=== PATIENT | female | born 1970 | race Caucasian/White ===

== ENCOUNTER → 2018-10-26 | Outpatient (CLI) | payer OTHER ==
[~2018-10-26] MED LIST: ATIVAN0.5 MG PO; DAYPRO600 M1 PO; HYDROXYZINE PAM50 MG PO; ROBAXIN750 MG PO
== END | disposition home or self-care (01) ==
LOC: MRI 10:54
DX: R51 Headache (principal); R42 Dizziness and giddiness

== ENCOUNTER → 2019-10-12 | Outpatient (CLI) | payer OTHER | END | disposition home or self-care (01) | LOC: US 09:50 | DX: N83.201 Unspecified ovarian cyst, right side (principal); Z90.710 Acquired absence of both cervix and uterus; Z90.49 Acquired absence of other specified parts of digestive tract ==

== ENCOUNTER 2019-11-10 00:32 | Inpatient (IN) | payer OTHER ==
[~2019-11-10] VITALS: Ht 167.6 cm; Wt 66.8 kg
[2019-11-10] VITALS (7 sets, daily range): BP systolic 121–140; BP diastolic 59–80
[2019-11-10 01:19] LABS: BASO % 0.4 % (0.0-1.0); EOS % 0.2 % (1.0-4.0); HEMATOCRIT 46.2 % (37.0-47.0); LYMPH # 3.1 10*3/uL (1.3-4.4); LYMPH % 33.1 % (27.0-41.0); MEAN CELL VOLUME 98.5 fl (81.0-99.0); MEAN CORPUSCULAR HGB CONC 33.5 g/dl (33.0-37.0); MEAN PLATELET VOLUME 8.9 fl (9.6-12.3); MONO # 0.6 10*3/uL (0.1-1.0); MONO % 6.5 % (3.0-9.0); NEUT # 5.6 10*3/uL (2.3-7.9); NEUT % 59.2 % (47.0-73.0); PLATELET COUNT AUTOMATED 144 10*3/uL (130-400); RED BLOOD COUNT 4.69 10*6/uL (4.10-5.10); RED CELL DISTRI WIDTH 14.5 % (0-14.5); WHITE BLOOD COUNT 9.4 10*3/uL (4.8-10.8)
[2019-11-10 01:35] LABS: ALBUMIN 3.7 gm/dl (3.1-4.5); ALKALINE PHOSPHATASE 100 U/L (45-117); BUN 16 mg/dl (7-24); CHLORIDE 110 mmol/L (98-107); CREATININE 0.74 mg/dL (0.55-1.02); LIPASE 163 U/L (73-393); SGOT/AST 42 IU/L (3-35); SGPT/ALT 35 U/L (12-78); SODIUM 144 mmol/L (136-145); TOTAL PROTEIN 7.4 gm/dL (6.4-8.2)
[2019-11-10 12:36] LABS: BACTERIA 1+; BILIRUBIN NEGATIVE (NEGATIVE); BLOOD NEGATIVE (NEGATIVE); CLARITY SL CLOUDY (CLEAR); COLOR YELLOW (YELLOW); GLUCOSE NEGATIVE (NEGATIVE); KETONE 3+ (NEGATIVE); LEUKO ESTERASE NEGATIVE (NEGATIVE); NITRITE NEGATIVE (NEGATIVE); PH 6.5 (5.0-9.0); RBC 0-2 rbc/hpf (0-2); SPECIFIC GRAVITY 1.015 (1.005-1.030); UROBILINOGEN 0.2 E.U./dl (0.2-1.0)
[2019-11-10 12:37] LABS: MUCOUS TRACE; URINE AMPHETAMINES < 1000 (1000ng/ml); URINE BARBITURATES < 200 (200ng/ml); URINE BENZODIAZEPINES < 200 (200ng/ml); URINE CANNABINOIDS (THC) < 50 (50ng/ml); URINE COCAINE < 300 (300ng/ml); URINE METHADONE < 300 (300ng/ml); URINE OPIATES < 300 (300ng/ml)
[2019-11-10 12:38] LABS: URINE PHENCYCLIDINE < 25 (25ng/ml)
[2019-11-11] VITALS: BP 156/71
[2019-11-11 06:52] LABS: BUN 19 mg/dl (7-24); CHLORIDE 110 mmol/L (98-107); CREATININE 0.53 mg/dL (0.55-1.02); POTASSIUM 3.5 mmol/L (3.5-5.1); SODIUM 141 mmol/L (136-145)
[2019-11-11 08:00] VITALS: BP 145/79
[2019-11-11 12:00] VITALS: BP 141/77
[2019-11-11 16:00] VITALS: BP 138/73
[2019-11-11 20:00] VITALS: BP 141/74
[2019-11-12] VITALS: BP 139/58
[2019-11-12 08:00] VITALS: BP 142/69
[2019-11-12] MEDS ORDERED: ATARAX,VISTARIL50 MG PO (11:37)
[2019-11-12] MEDS ORDERED: VITAMIN B-1100 M1 PO (11:37)
[2019-11-12] MEDS ORDERED: REQUIP0.25 M1 PO (11:37)
== END 2019-11-12 12:05 | disposition home or self-care (01) | DRG 897 ==
LOC: ED 00:32 → EDHOLD 02:32 → 4E 02:32
PROVIDERS: Emergency Medicine; Internal Medicine; ADMIT Internal Medicine
DX: F10.239 Alcohol dependence with withdrawal, unspecified (principal); F17.210 Nicotine dependence, cigarettes, uncomplicated; E87.6 Hypokalemia; K21.0 Gastro-esophageal reflux disease with esophagitis; F10.229 Alcohol dependence with intoxication, unspecified; Y90.8 Blood alcohol level of 240 mg/100 ml or more; Z71.6 Tobacco abuse counseling; Z90.49 Acquired absence of other specified parts of digestive tract; Z98.51 Tubal ligation status; Z88.0 Allergy status to penicillin; Z88.2 Allergy status to sulfonamides

== ENCOUNTER 2022-03-25 13:16 | Emergency (ER) | payer OTHER ==
[~2022-03-25] VITALS: Ht 167.6 cm; Wt 65.8 kg
[~2022-03-25 13:16] MED LIST changes: +ATARAX,VISTARIL50 MG PO; +REQUIP0.25 M1 PO; +VITAMIN B-1100 M1 PO
[2022-03-25 14:56] LABS: BASO % 0.3 % (0.0-1.0); EOS % 0.1 % (1.0-4.0); HEMATOCRIT 46.5 % (37.0-47.0); LYMPH # 1.4 10*3/uL (1.3-4.4); LYMPH % 14.4 % (27.0-41.0); MEAN CELL VOLUME 95.3 fl (81.0-99.0); MEAN CORPUSCULAR HGB 32.4 pg (27.0-31.0); MEAN PLATELET VOLUME 9.6 fl (9.6-12.3); MONO # 0.4 10*3/uL (0.1-1.0); MONO % 4.1 % (3.0-9.0); NEUT # 7.7 10*3/uL (2.3-7.9); NEUT % 80.7 % (47.0-73.0); PLATELET COUNT AUTOMATED 193 10*3/uL (130-400); RED BLOOD COUNT 4.88 10*6/uL (4.10-5.10); WHITE BLOOD COUNT 9.6 10*3/uL (4.8-10.8)
[2022-03-25 15:14] LABS: ALKALINE PHOSPHATASE 141 U/L (45-117); BUN 6 mg/dl (7-24); CHLORIDE 106 mmol/L (98-107); CREATININE 0.58 mg/dL (0.55-1.02); POTASSIUM 3.4 mmol/L (3.5-5.1); SGOT/AST 58 IU/L (3-35); SGPT/ALT 69 U/L (12-78); SODIUM 140 mmol/L (136-145); TOTAL PROTEIN 7.4 gm/dL (6.4-8.2)
[2022-03-25 15:22] LABS: THYROID STIM HORMONE (HS) 0.928 uIU/ml (0.358-4.75)
[2022-03-25 16:08] VITALS: BP 171/81
== END 2022-03-25 16:23 | disposition home or self-care (01) ==
LOC: ED 13:16
PROVIDERS: Nurse Practitioner Family
DX: I10 Essential (primary) hypertension (principal); Z88.0 Allergy status to penicillin; Z88.2 Allergy status to sulfonamides; Z90.89 Acquired absence of other organs; Z98.51 Tubal ligation status; F17.200 Nicotine dependence, unspecified, uncomplicated; Z90.49 Acquired absence of other specified parts of digestive tract

== ENCOUNTER 2022-04-13 08:16 | Emergency (ER) | payer OTHER ==
[~2022-04-13] VITALS: Ht 165.1 cm; Wt 63.5 kg
[2022-04-13 09:06] LABS: HEMATOCRIT 48.5 % (37.0-47.0); MEAN CELL VOLUME 95.5 fl (81.0-99.0); MEAN CORPUSCULAR HGB 32.5 pg (27.0-31.0); MEAN PLATELET VOLUME 12.3 fl (9.6-12.3); NUCLEATED RED BLOOD CELL 0.1 % (0.0-0.0); PLATELET COUNT AUTOMATED 82 10*3/uL (130-400); RED BLOOD COUNT 5.08 10*6/uL (4.10-5.10); WHITE BLOOD COUNT 17.9 10*3/uL (4.8-10.8)
[2022-04-13 09:18] LABS: ACT PARTIAL THROMBO TIME 40.5 SECONDS (20.0-32.1); INTERNATIONAL NORM RATIO 3.2 (2.0-3.5)
[2022-04-13 09:24] LABS: CREATININE 2.09 mg/dL (0.55-1.02); POTASSIUM 3.3 mmol/L (3.5-5.1); TOTAL PROTEIN 7.4 gm/dL (6.4-8.2)
[2022-04-13 09:26] LABS: MANUAL DIFF REFLEX YES
[2022-04-13 09:27] LABS: TOTAL CELLS COUNTED 100 #CELLS
[2022-04-13 09:28] LABS: PLATELET SUFFICIENCY LOW (NORMAL)
[2022-04-13 09:29] LABS: BURR CELLS MODERATE; VACUOLATION OF NEUTROPHILS MODERATE
[2022-04-13 12:15] LABS: BILIRUBIN 3+ (Negative); BLOOD Trace-Lysed (Negative); CLARITY Turbid (Clear); COLOR Dark Yellow (Yellow); GLUCOSE Negative (Negative); KETONE Trace (Negative); NITRITE Positive (Negative); SPECIFIC GRAVITY >= 1.030 (1.001-1.030)
[2022-04-13 12:35] LABS: BACTERIA 4+; EPITHELIAL CELLS 21-30; LEUKO ESTERASE 2+ (Negative); RBC 0-2 rbc/hpf (0-2)
[2022-04-13 15:43] VITALS: BP 97/59
[2022-04-14 12:05] LABS: HBSAG Negative (Negative); HEP B CORE AB, IGM Negative (Negative); HEPATITIS C ANTIBODY <0.1 (0.0-0.9)
== END 2022-04-13 18:52 | disposition home or self-care (01) ==
LOC: ED 08:16
PROVIDERS: Family Medicine
DX: A41.9 Sepsis, unspecified organism (principal); Z20.822 Contact with and (suspected) exposure to COVID-19; E87.20 Acidosis, unspecified; I95.9 Hypotension, unspecified; K72.90 Hepatic failure, unspecified without coma; Z90.49 Acquired absence of other specified parts of digestive tract; Z88.0 Allergy status to penicillin; Z88.2 Allergy status to sulfonamides

== ENCOUNTER 2022-08-14 23:40 | Inpatient (IN) | payer OTHER ==
[~2022-08-14] VITALS: Ht 167.6 cm; Wt 64.2 kg
[2022-08-15] VITALS (7 sets, daily range): BP systolic 109–155; BP diastolic 47–72
[2022-08-15 02:39] LABS: BASO % 0.2 % (0.0-1.0); EOS % 0.1 % (1.0-4.0); HEMATOCRIT 35.3 % (37.0-47.0); LYMPH # 1.2 10*3/uL (1.3-4.4); LYMPH % 7.8 % (27.0-41.0); MEAN CELL VOLUME 82.3 fl (81.0-99.0); MEAN CORPUSCULAR HGB 27.3 pg (27.0-31.0); MEAN CORPUSCULAR HGB CONC 33.1 g/dl (33.0-37.0); MONO # 0.8 10*3/uL (0.1-1.0); MONO % 4.9 % (3.0-9.0); NEUT # 13.6 10*3/uL (2.3-7.9); NEUT % 86.6 % (47.0-73.0); PLATELET COUNT AUTOMATED 241 10*3/uL (130-400); RED BLOOD COUNT 4.29 10*6/uL (4.10-5.10); RED CELL DISTRI WIDTH 15.4 % (0-14.5); WHITE BLOOD COUNT 15.7 10*3/uL (4.8-10.8)
[2022-08-15 02:51] LABS: BILIRUBIN Negative (Negative); BLOOD Negative (Negative); CLARITY Cloudy (Clear); COLOR Yellow (Yellow); GLUCOSE Negative (Negative); KETONE Trace (Negative); LEUKO ESTERASE 1+ (Negative); NITRITE Positive (Negative)
[2022-08-15 02:55] LABS: ALKALINE PHOSPHATASE 125 U/L (46-116); BUN 10 mg/dl (9-23); CHLORIDE 104 mmol/L (98-107); POTASSIUM 3.5 mmol/L (3.4-5.1); SGPT/ALT 10 U/L (10-49); TOTAL PROTEIN 6.3 gm/dL (6.0-8.0)
[2022-08-15 03:10] LABS: BACTERIA 4+
[2022-08-15 08:04] LABS: FREE T4 0.97 ng/dl (0.89-1.76); THYROID STIM HORMONE (HS) 1.039 uIU/ml (0.550-4.780)
[2022-08-16] VITALS: BP 130/67
[2022-08-16 06:04] LABS: ALKALINE PHOSPHATASE 111 U/L (46-116); BUN 8 mg/dl (9-23); CHLORIDE 109 mmol/L (98-107); POTASSIUM 3.4 mmol/L (3.4-5.1); SGPT/ALT 9 U/L (10-49); TOTAL PROTEIN 5.7 gm/dL (6.0-8.0)
[2022-08-16 06:26] LABS: BASO # 0.1 10*3/uL (0.0-0.1); BASO % 0.3 % (0.0-1.0); EOS # 0.1 10*3/uL (0.0-0.4); EOS % 0.5 % (1.0-4.0); HEMATOCRIT 34.9 % (37.0-47.0); LYMPH # 2.6 10*3/uL (1.3-4.4); MEAN CELL VOLUME 84.5 fl (81.0-99.0); MEAN CORPUSCULAR HGB 27.1 pg (27.0-31.0); MEAN CORPUSCULAR HGB CONC 32.1 g/dl (33.0-37.0); MEAN PLATELET VOLUME 9.7 fl (9.6-12.3); MONO # 0.7 10*3/uL (0.1-1.0); MONO % 3.4 % (3.0-9.0); NEUT # 17.6 10*3/uL (2.3-7.9); NEUT % 82.8 % (47.0-73.0); PLATELET COUNT AUTOMATED 237 10*3/uL (130-400); RED BLOOD COUNT 4.13 10*6/uL (4.10-5.10); WHITE BLOOD COUNT 21.2 10*3/uL (4.8-10.8)
[2022-08-16 08:00] VITALS: BP 112/52
[2022-08-16 12:00] VITALS: BP 111/50
[2022-08-16 16:00] VITALS: BP 117/57
[2022-08-16 20:00] VITALS: BP 129/58
[2022-08-17] VITALS: BP 120/57
[2022-08-17 06:27] LABS: BASO % 0.4 % (0.0-1.0); EOS # 0.1 10*3/uL (0.0-0.4); EOS % 1.2 % (1.0-4.0); HEMATOCRIT 31.7 % (37.0-47.0); LYMPH # 2.3 10*3/uL (1.3-4.4); LYMPH % 22.4 % (27.0-41.0); MEAN CELL VOLUME 86.4 fl (81.0-99.0); MEAN CORPUSCULAR HGB 27.2 pg (27.0-31.0); MEAN CORPUSCULAR HGB CONC 31.5 g/dl (33.0-37.0); MONO # 0.6 10*3/uL (0.1-1.0); MONO % 5.8 % (3.0-9.0); NEUT # 7.2 10*3/uL (2.3-7.9); NEUT % 69.6 % (47.0-73.0); PLATELET COUNT AUTOMATED 211 10*3/uL (130-400); RED BLOOD COUNT 3.67 10*6/uL (4.10-5.10); RED CELL DISTRI WIDTH 16.4 % (0-14.5); WHITE BLOOD COUNT 10.3 10*3/uL (4.8-10.8)
[2022-08-17 08:00] VITALS: BP 120/53
[2022-08-17 12:00] VITALS: BP 131/62
[2022-08-17 16:00] VITALS: BP 131/59
[2022-08-17 20:00] VITALS: BP 138/64
[2022-08-18] VITALS: BP 148/66
[2022-08-18 06:16] LABS: BASO % 0.3 % (0.0-1.0); EOS # 0.1 10*3/uL (0.0-0.4); EOS % 1.7 % (1.0-4.0); HEMATOCRIT 32.1 % (37.0-47.0); LYMPH # 2.3 10*3/uL (1.3-4.4); LYMPH % 31.6 % (27.0-41.0); MEAN CELL VOLUME 86.5 fl (81.0-99.0); MEAN CORPUSCULAR HGB 27.2 pg (27.0-31.0); MEAN CORPUSCULAR HGB CONC 31.5 g/dl (33.0-37.0); MEAN PLATELET VOLUME 9.8 fl (9.6-12.3); MONO # 0.5 10*3/uL (0.1-1.0); MONO % 6.2 % (3.0-9.0); NEUT # 4.3 10*3/uL (2.3-7.9); NEUT % 59.6 % (47.0-73.0); PLATELET COUNT AUTOMATED 214 10*3/uL (130-400); RED BLOOD COUNT 3.71 10*6/uL (4.10-5.10); RED CELL DISTRI WIDTH 16.2 % (0-14.5); WHITE BLOOD COUNT 7.3 10*3/uL (4.8-10.8)
[2022-08-18 08:00] VITALS: BP 134/66
[2022-08-18 08:59] LABS: BUN 9 mg/dl (9-23); CHLORIDE 112 mmol/L (98-107); POTASSIUM 3.6 mmol/L (3.4-5.1)
[2022-08-18 12:00] VITALS: BP 148/68
[2022-08-18 16:00] VITALS: BP 138/62
[2022-08-18 20:00] VITALS: BP 135/59
[2022-08-19] VITALS: BP 138/67
[2022-08-19 08:00] VITALS: BP 120/70
[2022-08-19] MEDS ORDERED: VIBRAMYCIN100 MG PO (11:05)
[2022-08-19] MEDS ORDERED: MUCINEX ER600 MG PO (11:07)
[2022-08-19] MEDS ORDERED: VITAMIN B-1100 M1 PO (11:07)
[2022-08-19 12:00] VITALS: BP 127/76
[2022-08-19 15:06] LABS: MYCOPLASMA PNEUMONIAE IGG 417 U/mL (0-99); MYCOPLASMA PNEUMONIAE IGM <770 U/mL (0-769)
== END 2022-08-19 13:06 | disposition home or self-care (01) | DRG 720 ==
LOC: ED 23:40 → 4E 08-15 05:59 → EDHOLD 08-15 05:59 → ICCU 08-15 09:08 → 4E 08-15 22:57
PROVIDERS: Emergency Medicine; Internal Medicine; Internal Medicine Critical Care Medicine; Registered Nurse; ADMIT Family Medicine; ATTEND Family Medicine
DX: A41.9 Sepsis, unspecified organism (principal); E44.0 Moderate protein-calorie malnutrition; E83.42 Hypomagnesemia; D64.9 Anemia, unspecified; K21.9 Gastro-esophageal reflux disease without esophagitis; R73.9 Hyperglycemia, unspecified; I10 Essential (primary) hypertension; N12 Tubulo-interstitial nephritis, not specified as acute or chronic; J44.0 Chronic obstructive pulmonary disease with (acute) lower respiratory infection; N39.0 Urinary tract infection, site not specified; J15.6 Pneumonia due to other Gram-negative bacteria; Z88.0 Allergy status to penicillin; Z88.2 Allergy status to sulfonamides; Z98.51 Tubal ligation status; Z78.9 Other specified health status; Z90.49 Acquired absence of other specified parts of digestive tract; Z68.22 Body mass index [BMI] 22.0-22.9, adult; F10.20 Alcohol dependence, uncomplicated

== ENCOUNTER 2022-09-23 19:50 | Emergency (ER) | payer OTHER ==
[~2022-09-23] VITALS: Ht 165.1 cm; Wt 59.0 kg
[~2022-09-23 19:50] MED LIST changes: +MUCINEX ER600 MG PO; +VIBRAMYCIN100 MG PO
[2022-09-23 19:52] VITALS: BP 148/82
== END 2022-09-23 22:01 | disposition left against medical advice (07) ==
LOC: ED 19:50
DX: S09.93XA Unspecified injury of face, initial encounter (principal); T74.21XA Adult sexual abuse, confirmed, initial encounter; Z88.0 Allergy status to penicillin; Z88.2 Allergy status to sulfonamides; Z90.49 Acquired absence of other specified parts of digestive tract; Z98.51 Tubal ligation status; Z98.890 Other specified postprocedural states; F17.200 Nicotine dependence, unspecified, uncomplicated; F10.10 Alcohol abuse, uncomplicated; Y08.89XA Assault by other specified means, initial encounter; Y93.89 Activity, other specified; Y92.89 Other specified places as the place of occurrence of the external cause; Y99.8 Other external cause status